=== PATIENT | female | born 1970 | race Caucasian/White ===

== ENCOUNTER → 2017-05-19 | Outpatient (CLI) | payer BC | END | disposition home or self-care (01) | LOC: LABWHC1 12:38 | PROVIDERS: ATTEND Obstetrics & Gynecology | DX: N83.209 Unspecified ovarian cyst, unspecified side (principal) | CPT/HCPCS: 36415; 86304 ==

== ENCOUNTER → 2017-05-28 | Outpatient (CLI) | payer BC ==
[2017-05-28 10:01] LABS: Basophils % (A) 0 %; CH 30.7; CHCM 34.2; Eosinophils # (A) 0.2 k/uL (0-0.7); Eosinophils % (A) 2 %; HDW 2.45; HGB 14.9 gm/dL (11.4-16.0); Luc # (Auto) 0.17; Luc % (Auto) 2; Lymphocytes # (A) 2.9 k/uL (1.0-4.8); Lymphocytes % (A) 39 %; MCH 29.8 pg (25.0-35.0); MCHC 33.1 g/dL (31.0-37.0); MCV 90.1 fL (80.0-100.0); Mean Platelet Volume 7.4; Monocytes # (A) 0.3 k/uL (0-1.0); Monocytes % (A) 4 %; Neutrophils # (A) 3.9 k/uL (1.3-7.7); Neutrophils % (A) 53 %; RBC 4.99 m/uL (3.80-5.40); RDW 12.4 % (11.5-15.5); WBC 7.4 k/uL (3.8-10.6); WBC (Perox) 7.41
== END | disposition home or self-care (01) ==
LOC: LABPAT 09:39
PROVIDERS: ATTEND Obstetrics & Gynecology
DX: Z01.812 Encounter for preprocedural laboratory examination (principal)
CPT/HCPCS: 36415; 85025

== ENCOUNTER → 2017-07-01 | Outpatient (CLI) | payer BC ==
--- NOTE | 2017-07-05 08:40 | MM ---
Reason for exam: screening (asymptomatic). Last mammogram was performed 1 year and 1 month ago. History: Patient is postmenopausal. Took hormonal contraceptives for 5 years. Physical Findings: A clinical breast exam by your physician is recommended on an annual basis and results should be correlated with mammographic findings. MG 3D Screening Mammo W/Cad Bilateral CC and MLO view(s) were taken. Prior study comparison: May 24, 2016, bilateral MG screening mammo w CAD. May 23, 2015, bilateral MG screening mammo w CAD. The breast tissue is heterogeneously dense. This may lower the sensitivity of mammography. Finding: There are typically benign circumscribed oval masses in both breasts present on multiple prior exams. No suspicious abnormality. No significant changes in finding since May 24, 2016 and May 23, 2015. ASSESSMENT: Benign, BI-RAD 2 RECOMMENDATION: Routine screening mammogram of both breasts in 1 year.
== END | disposition home or self-care (01) ==
LOC: RADMAMWWP 14:50
PROVIDERS: ATTEND Obstetrics & Gynecology
DX: Z12.31 Encounter for screening mammogram for malignant neoplasm of breast (principal)
CPT/HCPCS: 77063; G0202

== ENCOUNTER → 2018-01-11 | Outpatient (CLI) | payer BC ==
[2018-01-11 09:00] LABS: Basophils % (A) 1 %; Eosinophils # (A) 0.2 k/uL (0-0.7); Eosinophils % (A) 3 %; HCT 41.5 % (34.0-46.0); Lymphocytes # (A) 2.4 k/uL (1.0-4.8); Lymphocytes % (A) 37 %; MCH 30.4 pg (25.0-35.0); MCHC 33.7 g/dL (31.0-37.0); MCV 90.2 fL (80.0-100.0); Monocytes # (A) 0.5 k/uL (0-1.0); Monocytes % (A) 7 %; Neutrophils # (A) 3.3 k/uL (1.3-7.7); Neutrophils % (A) 50 %; Platelet Count 314 k/uL (150-450); RDW 12.5 % (11.5-15.5); WBC 6.6 k/uL (3.8-10.6)
[2018-01-11 14:45] LABS: ALT 54 U/L (9-52); AST 35 U/L (14-36); Albumin 4.6 g/dL (3.5-5.0); Alkaline Phosphatase 91 U/L (38-126); Anion Gap 15 mmol/L; Blood Urea Nitrogen 22 mg/dL (7-17); Calcium 9.7 mg/dL (8.4-10.2); Carbon Dioxide 27 mmol/L (22-30); Chloride 101 mmol/L (98-107); Cholesterol 152 mg/dL (<200); Glucose 109 mg/dL (74-99); HDL Cholesterol 49 mg/dL (40-60); LDL Cholesterol,Calculated 75 mg/dL (0-99); Potassium 4.2 mmol/L (3.5-5.1); Sodium 143 mmol/L (137-145); Total Bilirubin 0.3 mg/dL (0.2-1.3); Total Protein 7.4 g/dL (6.3-8.2); Triglycerides 141 mg/dL (<150)
[2018-01-11 15:20] LABS: T4, Free (Free Thyroxine) 1.11 ng/dL (0.78-2.19)
== END | disposition home or self-care (01) ==
LOC: LABWHC1 08:26
PROVIDERS: ATTEND Physician Assistant
DX: Z00.00 Encounter for general adult medical examination without abnormal findings (principal)
CPT/HCPCS: 36415; 80053; 80061; 84439; 84443; 85025

== ENCOUNTER → 2018-07-06 | Outpatient (CLI) | payer BC ==
--- NOTE | 2018-07-13 14:54 | MM ---
Reason for exam: screening (asymptomatic). Last mammogram was performed 1 year ago. History: Patient is postmenopausal. Family history of breast cancer in maternal aunt. Took hormonal contraceptives for 5 years. MG 3D Screening Mammo W/Cad Bilateral CC and MLO view(s) were taken. Prior study comparison: July 01, 2017, bilateral MG 3d screening mammo w/cad. May 24, 2016, bilateral MG screening mammo w CAD. The breast tissue is heterogeneously dense. This may lower the sensitivity of mammography. There is a benign-appearing 9 high oval circumscribed density in the left breast at 9 o'clock. It is approximately 5 cm from the nipple and this has enlarged from prior studies. Finding is changed when compared to prior images. ASSESSMENT: Incomplete: need additional imaging evaluation, BI-RAD 0 RECOMMENDATION: Ultrasound of the left breast.
== END ==
LOC: RADMAMWWP 09:26
PROVIDERS: ATTEND Obstetrics & Gynecology
DX: Z12.31 Encounter for screening mammogram for malignant neoplasm of breast (principal)
CPT/HCPCS: 77063; 77067

== ENCOUNTER → 2018-07-19 | Outpatient (CLI) | payer BC ==
--- NOTE | 2018-07-20 08:49 | USB ---
Reason for exam: additional evaluation requested from abnormal screening. History: Patient is postmenopausal. Family history of breast cancer in maternal aunt. Took hormonal contraceptives for 5 years. Physical Findings: Nurse did not find any significant physical abnormalities on exam. US Breast Workup Limited LT limited breast ultrasound including focal area of concern, retroareolar and axilla demonstrates a 1.1 x 0.7 x 1.4 cm oval cystic mixed lesion at 6 o'clock that a biopsy is recommended on. A 0.6 x 0.4 x 0.7 cm oval cystic lesion at 9 o'clock. These results were verbally communicated with the patient and result sheet given to the patient on 07/19/18. ASSESSMENT: Suspicious, BI-RAD 4 RECOMMENDATION: Ultrasound core biopsy of the left breast. Called Dr. Maldonado with mammographic findings and has scheduled an appointment for the patient for 08/24/18 at 10:[address] Gil. The ultrasount guided core biopsy of the left breast will be done on 08/07/18 at 12:20 pm. PRELIMINARY REPORT CALLED AND FAXED TO DR. GIL ON 07/19/18.
== END | disposition home or self-care (01) ==
LOC: RADUSWWP 15:24
PROVIDERS: ATTEND Obstetrics & Gynecology
DX: R92.8 Other abnormal and inconclusive findings on diagnostic imaging of breast (principal)

== ENCOUNTER → 2018-08-07 | Day surgery (SDC) | payer BC ==
[2018-08-07 11:29] VITALS: RESP 16; BMI 72.2
[2018-08-07 13:10] VITALS: BP 150/80; PULSE 98; TEMP 98.7
--- NOTE | 2018-08-07 13:10 | USB ---
EXAMINATION TYPE: US breast aspiration single LT, MG diagnostic mammo LT wo CAD DATE OF EXAM: 08/07/2018 CLINICAL HISTORY: R92.8. Abnormal mammogram and ultrasound. History of fibrocystic disease with prior biopsies per patient. TECHNIQUE: Ultrasound guided fine-needle aspiration and/or core biopsy of left breast. COMPARISON: Prior ultrasound July 19, 2018. Prior mammogram July 06, 2018 and older studies. FINDINGS: The procedure of ultrasound guided core biopsy was explained to the patient. Benefits, alternatives, and risks were discussed. An informed consent was then obtained. The patient was placed in supine positioning for imaging and for the procedure. Preprocedure ultrasound redemonstrates oval well-circumscribed 1.3 cm cyst zone a 6:00 position left breast with some internal septations along right aspect. The overlying skin was prepped and draped in usual sterile fashion. Lidocaine buffered with bicarbonate was used as anesthetic into the skin and subcutaneous tissue up to area of concern in the left breast. Under ultrasound guidance, a 18-gauge needle was used to obtain aspirate to resolution. Approximately 1 cc of cloudy fluid was aspirated. Following this, a biopsy clip was left at site lesion was present prior to aspiration. No residual suspicious tissue identified to warrant biopsy after aspiration. The patient tolerated the procedure well without any immediate complication. The patient was kept in the radiology department for short stay after the procedure and then discharged home in stable condition. Postprocedure mammogram shows successful deployment of clip corresponding to lesion of concern prior to procedure. IMPRESSION: Successful, uncomplicated ultrasound guided core biopsy of area of concern in the left breast, full pathology results to follow. Low index of suspicion noted at time of procedure. Pathology Results: Benign LEFT BREAST CYST, ASPIRATION: Apocrine cells, pigmented histiocytes and benign breast ductal cells consistent with benign breast cyst with apocrine metaplasia. Cells cytologically diagnostic of malignancy are not identified. Recommendation Follow up ultrasound of the left breast in 6 months. CELESTE
== END | disposition home or self-care (01) ==
LOC: RADUSWWP 11:16
PROVIDERS: ATTEND Surgery
DX: N60.02 Solitary cyst of left breast (principal); Z88.2 Allergy status to sulfonamides; Z88.8 Allergy status to other drugs, medicaments and biological substances
CPT/HCPCS: 88108; 77065; 76942; 19000; A4648; J2001

== ENCOUNTER → 2018-12-29 | Outpatient (CLI) | payer BC ==
[2018-12-29 08:48] LABS: Basophils % (A) 0 %; Eosinophils # (A) 0.3 k/uL (0-0.7); Eosinophils % (A) 4 %; HCT 45.7 % (34.0-46.0); HGB 14.8 gm/dL (11.4-16.0); Lymphocytes % (A) 38 %; MCH 29.6 pg (25.0-35.0); MCHC 32.3 g/dL (31.0-37.0); MCV 91.6 fL (80.0-100.0); Mean Platelet Volume 7.5; Monocytes # (A) 0.4 k/uL (0-1.0); Monocytes % (A) 5 %; Neutrophils # (A) 4.1 k/uL (1.3-7.7); Neutrophils % (A) 51 %; Platelet Count 248 k/uL (150-450); RBC 4.99 m/uL (3.80-5.40); RDW 12.8 % (11.5-15.5)
[2018-12-29 15:49] LABS: African American GFR (CKD) 119.6 (60.0-200.0); Albumin 4.9 g/dL (3.80-4.90); Albumin/Globulin Ratio 2.45 (1.60-3.17); Anion Gap 9.3 mmol/L (4.00-12.00); BUN/Creat Ratio 31.43 Ratio (12.00-20.00); Calcium 10.2 mg/dL (8.7-10.3); Carbon Dioxide 27.7 mmol/L (21.6-31.8); LDL Cholesterol,Calculated 79.4 mg/dL (0.0-131.0); Potassium 4.2 mmol/L (3.5-5.5); Total Bilirubin 0.4 mg/dL (0.2-1.2); Total Protein 6.9 g/dL (6.2-8.2); VLDL Calculation 35.6 mg/dL (5.00-40.00)
[2018-12-29 15:56] LABS: T4, Free (Free Thyroxine) 1.1 ng/dL (0.80-1.80)
== END | disposition home or self-care (01) ==
LOC: LABWHC1 08:19
PROVIDERS: ATTEND Physician Assistant
DX: E78.5 Hyperlipidemia, unspecified (principal)
CPT/HCPCS: 36415; 80053; 80061; 84439; 84443; 85025

== ENCOUNTER → 2019-01-10 | Outpatient (CLI) | payer BC ==
--- NOTE | 2019-01-10 09:18 | MM ---
Reason for exam: follow-up at short interval from prior study. Last mammogram was performed 5 months ago. History: Patient is postmenopausal. Family history of breast cancer in maternal aunt. Benign US breast aspiration single LT of the left breast, August 07, 2018. Took hormonal contraceptives for 5 years. Physical Findings: Nurse did not find any significant physical abnormalities on exam. MG 3D Diag Mammo W/Cad LT CC and MLO view(s) were taken of the left breast. Prior study comparison: August 07, 2018, left breast MG diagnostic mammo LT wo CAD. July 06, 2018, bilateral MG 3d screening mammo w/cad. The breast tissue is heterogeneously dense. This may lower the sensitivity of mammography. There are round oval circumscribed central outer and inner masses similar to priors. Ultrasound will be performed as ordered on the left. Left biopsy marker. These results were verbally communicated with the patient and result sheet given to the patient on 01/10/19. ASSESSMENT: Benign, BI-RAD 2 RECOMMENDATION: Return to routine screening mammogram schedule for both breasts. Back on schedule for July 2019.
--- NOTE | 2019-01-10 09:20 | USB ---
Reason for exam: follow-up at short interval from prior study. History: Patient is postmenopausal. Family history of breast cancer in maternal aunt. Benign US breast aspiration single LT of the left breast, August 07, 2018. Took hormonal contraceptives for 5 years. US Breast Limited LT Left limited breast ultrasound including focal area of concern, retroareolar and axilla demonstrates a 0.6 x 0.6 x 0.4cm cystic lesion at 9 o'clock, previously 0.6 x 0.4 x 0.7cm, benign. Previously aspirated 6 o'clock cyst is no longer seen and has resolved. These results were verbally communicated with the patient and result sheet given to the patient on 01/10/19. ASSESSMENT: Benign, BI-RAD 2 RECOMMENDATION: Return to routine screening mammogram schedule for both breasts. Back on schedule for July 2019.
== END | disposition home or self-care (01) ==
LOC: RADMAMWWP 07:55
PROVIDERS: ATTEND Surgery
DX: R92.8 Other abnormal and inconclusive findings on diagnostic imaging of breast (principal)
CPT/HCPCS: 77061; 77065

== ENCOUNTER → 2019-02-05 | Outpatient (CLI) | payer BC ==
--- NOTE | 2019-02-05 17:00 | ECHOF ---
Referral Reason:R01.1 cardiac murmur MEASUREMENTS -------- HEIGHT: 162.6 cm WEIGHT: 88.0 kg BP: IVSd: 0.9 cm (0.6 - 1.1) LVIDd: 5.1 cm (3.9 - 5.3) LVPWd: 1.0 cm (0.6 - 1.1) IVSs: 1.2 cm LVIDs: 3.5 cm LVPWs: 1.2 cm LA Diam: 3.2 cm (2.7 - 3.8) RVIDd: 2.6 cm (< 3.3) Ao Diam: 3.2 cm (2.0 - 3.7) LA Diam: 2.8 cm (2.7 - 3.8) AV Cusp: 1.5 cm (1.5 - 2.6) EPSS: 0.5 cm MV E Armani: 0.75 m/s MV DecT: 190 ms MV A Armani: 0.87 m/s MV E/A Ratio: 0.87 RAP: 5.00 mmHg RVSP: 20.19 mmHg MV EF SLOPE: 54.36 mm/s (70 - 150) MV EXCURSION: 1.14 cm (> 18.000) FINDINGS -------- Sinus rhythm. This was a technically adequate study. LV size, wall thickness and systolic function are normal, with an EF greater than 55%. The left raymon tricular size is normal. The right ventricle is normal in size. The left atrial size is normal. The right atrial size is normal. The aortic valve is trileaflet, and appears structurally normal. No aortic stenosis or regurgitation. Mild mitral regurgitation is present. Mild tricuspid regurgitation present. There is no evidence of pulmonary hypertension. The right v entricular systolic pressure, as measured by Doppler, is 20.19mmHg. There is no pulmonic regurgitation present. The aortic root size is normal. There is no pericardial effusion. CONCLUSIONS -------- 1. This was a technically adequate study. 2. LV size, wall thickness and systolic function are normal, with an EF greater than 55%. 3. The left ventricular size is normal. 4. The right ventricle is normal in size. 5. The left atrial size is normal. 6. The right atrial size is normal. 7. The aortic valve is trileaflet, and appears structurally normal. No aortic stenosis or regurgitati on. 8. Mild mitral regurgitation is present. 9. There is no evidence of pulmonary hypertension. 10. The right ventricular systolic pressure, as measured by Doppler, is 20.19mmHg. 11. There is no pulmonic regurgitation present. 12. The aortic root size is normal. 13. There is no pericardial effusion. EVENT LIGHTING SPECIALIST: Constanza Moraes RDCS
== END | disposition home or self-care (01) ==
LOC: RADECHMAIN 11:13
PROVIDERS: ATTEND Family Medicine
DX: R01.1 Cardiac murmur, unspecified (principal)
CPT/HCPCS: 93306

== ENCOUNTER → 2019-07-26 | Outpatient (CLI) | payer BC ==
--- NOTE | 2019-07-27 10:25 | MM ---
Reason for exam: screening (asymptomatic). Last mammogram was performed 6 months ago. History: Patient is postmenopausal. Family history of breast cancer in maternal aunt. Benign US breast aspiration single LT of the left breast, August 07, 2018. Took hormonal contraceptives for 5 years. Physical Findings: A clinical breast exam by your physician is recommended on an annual basis and results should be correlated with mammographic findings. MG 3D Screening Mammo W/Cad Bilateral CC and MLO view(s) were taken. Prior study comparison: January 10, 2019, left breast MG 3d diag mammo w/cad LT. August 07, 2018, left breast MG diagnostic mammo LT wo CAD. The breast tissue is heterogeneously dense. This may lower the sensitivity of mammography. Previous mammotome biopsy in the left breast. There is no discrete abnormality. ASSESSMENT: Benign, BI-RAD 2 RECOMMENDATION: Routine screening mammogram of both breasts in 1 year.
== END | disposition home or self-care (01) ==
LOC: RADMAMWWP 06:54
PROVIDERS: ATTEND Obstetrics & Gynecology
DX: Z12.31 Encounter for screening mammogram for malignant neoplasm of breast (principal)
CPT/HCPCS: 77063; 77067

== ENCOUNTER → 2020-09-17 | Outpatient (CLI) | payer BC ==
--- NOTE | 2020-09-19 08:06 | BD ---
EXAMINATION TYPE: Axial Bone Density DATE OF EXAM: 09/17/2020 COMPARISON: NONE CLINICAL HISTORY: Height: 64.2 IN Weight: 194 LBS FRAX RISK QUESTIONS: Secondary Osteoporosis: 3. Menopause before 45: AGE 44 RISK FACTORS HISTORY OF: Family History of Osteoporosis: YES GRANDMOTHER Active: YES Postmenopausal woman: AGE 44 MEDICATIONS: Additional Medications: VIT D, CRESTOR, HCTZ, FISH OIL, PRIMROSE OIL, JUICE PLUS, EXAM MEASUREMENTS: Bone mineral densitometry was performed using the [employer] System. Bone mineral density as measured about the Lumbar spine is: ----- L1-L4(G/cm2): 1.227 T Score Values are as follows: ----- L2: 0.0 ----- L3: 0.5 ----- L4: 0.3 ----- L1-L4: 0.4 Bone mineral density BASELINE Bone mineral density about the R hip (g/cm2): 1.065 Bone mineral density about the L hip (g/cm2): 1.020 T Score values are as follows: -----R Neck: 0.2 -----L Neck: -0.1 -----R Total: 0.9 -----L Total: 1.1 Bone mineral density BASELINE IMPRESSION: Normal (Values between +1 and -1 indicate normal bone mass). Consider repeating this study in 5 year s or sooner if there is some new clinical indication. NOTE: T-SCORE=SD OF THE YOUNG ADULT MEAN.
--- NOTE | 2020-09-22 10:20 | MM ---
Reason for exam: screening (asymptomatic). Last mammogram was performed 1 year and 2 months ago. History: Patient is postmenopausal. Family history of breast cancer in maternal aunt. Benign US breast aspiration single LT of the left breast, August 07, 2018. Took hormonal contraceptives for 5 years. Physical Findings: A clinical breast exam by your physician is recommended on an annual basis and results should be correlated with mammographic findings. MG 3D Screening Mammo W/Cad Bilateral CC and MLO view(s) were taken. XCCL view(s) were taken of the left breast. Prior study comparison: July 26, 2019, bilateral MG 3d screening mammo w/cad. January 10, 2019, left breast MG 3d diag mammo w/cad LT. The breast tissue is heterogeneously dense. This may lower the sensitivity of mammography. Previous mammotome biopsy in the left breast. A 7mm circumscribed isodense nodule 11 o'clock right breast is more defined and suspected to represent a waxing cyst. 6 month follow up recommended. ASSESSMENT: Probably benign, BI-RAD 3 RECOMMENDATION: Follow-up diagnostic mammogram of the right breast in 6 months.
== END ==
LOC: RADMAMWWP 15:41
PROVIDERS: ATTEND Obstetrics & Gynecology
DX: M81.8 Other osteoporosis without current pathological fracture (principal)
CPT/HCPCS: 77063; 77067; 77080

== ENCOUNTER → 2021-03-25 | Outpatient (CLI) | payer BC ==
--- NOTE | 2021-03-25 09:07 | MM ---
Reason for exam: follow-up at short interval from prior study. Last mammogram was performed 6 months ago. History: Patient is postmenopausal. Family history of breast cancer in maternal aunt. Benign US breast aspiration single LT of the left breast, August 07, 2018. Took hormonal contraceptives for 5 years. Physical Findings: Nurse did not find any significant physical abnormalities on exam. MG 3D Diag Mammo W/Cad RT CC and MLO view(s) were taken of the right breast. Prior study comparison: September 17, 2020, bilateral MG 3d screening mammo w/cad. July 26, 2019, bilateral MG 3d screening mammo w/cad. January 10, 2019, left breast MG 3d diag mammo w/cad LT. The breast tissue is heterogeneously dense. This may lower the sensitivity of mammography. Circumscribed nodule medially increased in size and laterally decreased in size. Cysts are suspected. Continued follow up recommended. These results were verbally communicated with the patient and result sheet given to the patient on 03/25/21. ASSESSMENT: Probably benign, BI-RAD 3 RECOMMENDATION: Follow-up diagnostic mammogram of both breasts in 6 months.
== END | disposition home or self-care (01) ==
LOC: RADMAMWWP 07:29
PROVIDERS: ATTEND Obstetrics & Gynecology
DX: N63.10 Unspecified lump in the right breast, unspecified quadrant (principal); Z78.0 Asymptomatic menopausal state; Z80.3 Family history of malignant neoplasm of breast; Z79.3 Long term (current) use of hormonal contraceptives
CPT/HCPCS: 77061; 77065

== ENCOUNTER → 2021-06-23 | Outpatient (CLI) | payer BC ==
[~2021-06-23] MED LIST: BAMLANIVIMAB (EUA) 700 MG, ETESEVIMAB (EUA) 1,400 MG in SODIUM CHLORIDE 0.9% 50 ML IVPB ONE; SODIUM CHLORIDE 0.9% 50 ML IVPB ONE; SODIUM CHLORIDE 0.9% 500 ML 500 ML in EMPTY BAG 1 BAG IV PRN
[2021-06-23 10:32] VITALS: RESP 16
[2021-06-23 10:51] VITALS: BP 111/76; PULSE 77; TEMP 98
== END ==
LOC: PROCWHC3 09:59
PROVIDERS: ATTEND Nurse Practitioner Family
DX: U07.1 COVID-19 (principal); E66.9 Obesity, unspecified; Z88.2 Allergy status to sulfonamides; Z88.8 Allergy status to other drugs, medicaments and biological substances; Z68.31 Body mass index [BMI] 31.0-31.9, adult
CPT/HCPCS: 96360; J3490; M0245

== ENCOUNTER → 2021-09-23 | Outpatient (CLI) | payer BC ==
--- NOTE | 2021-09-23 09:56 | MM ---
Reason for exam: follow-up at short interval from prior study. Last mammogram was performed 6 months ago. History: Patient is postmenopausal. Family history of breast cancer in maternal aunt. Benign US breast aspiration single LT of the left breast, August 07, 2018. Took hormonal contraceptives for 5 years. Physical Findings: A clinical breast exam by your physician is recommended on an annual basis and results should be correlated with mammographic findings. MG 3D Diag Mammo W/Cad REY Bilateral CC and MLO view(s) were taken. Prior study comparison: March 25, 2021, right breast MG 3d diag mammo w/cad RT. September 17, 2020, bilateral MG 3d screening mammo w/cad. The breast tissue is heterogeneously dense. This may lower the sensitivity of mammography. There is chronic nodularity in the right breast. ASSESSMENT: Probably benign, BI-RAD 3 RECOMMENDATION: Follow-up diagnostic mammogram of the right breast in 6 months.
== END | disposition home or self-care (01) ==
LOC: RADMAMWWP 07:45
PROVIDERS: ATTEND Obstetrics & Gynecology
DX: R92.8 Other abnormal and inconclusive findings on diagnostic imaging of breast (principal); Z78.0 Asymptomatic menopausal state; Z80.3 Family history of malignant neoplasm of breast
CPT/HCPCS: 77062; 77066

== ENCOUNTER → 2021-10-22 | Outpatient (CLI) | payer BC ==
[2021-10-22 10:34] LABS: Basophils # (A) 0.03 X 10*3/uL (0.00-0.10); Basophils % (A) 0.4 %; Eosinophils # (A) 0.19 X 10*3/uL (0.04-0.35); Eosinophils % (A) 2.7 %; HCT 47.3 % (37.2-46.3); HGB 15.1 g/dL (12.0-15.0); Immature Grans, Automated 0.1 %; Lymphocytes # (A) 2.48 X 10*3/uL (0.90-5.00); Lymphocytes % (A) 35.2 %; MCH 29.7 pg (27.0-32.0); MCHC 31.9 g/dL (32.0-37.0); MCV 92.9 fL (80.0-97.0); Mean Platelet Volume 10.9 fL (9.5-12.2); Monocytes % (A) 7.1 %; NRBC Per 100 WBC 0 /100 WBCS (0.0-0.0); Neutrophils # (A) 3.83 X 10*3/uL (1.80-7.70); Neutrophils % (A) 54.5 %; Platelet Count 262 X 10*3/uL (140-440); RBC 5.09 X 10*6/uL (4.10-5.20); RDW 11.9 % (11.5-14.5); WBC 7.04 X 10*3/uL (4.50-10.00)
[2021-10-22 10:49] LABS: ALT 23 U/L (8-44); AST 22 U/L (13-35); African American GFR (CKD) 123.2 (60.0-200.0); Albumin/Globulin Ratio 1.85 (1.60-3.17); Alkaline Phosphatase 78 U/L (41-126); Blood Urea Nitrogen 20.7 mg/dL (9.0-27.0); Calcium 9.8 mg/dL (8.7-10.3); Carbon Dioxide 26.1 mmol/L (20.0-27.5); Chloride 102 mmol/L (96-109); Chol/HDL Ratio 2.84 Ratio; Globulin 2.7 g/dL (1.6-3.3); Glucose 102 mg/dL (70-110); LDL Cholesterol,Calculated 73.9 mg/dL (0.0-131.0); Non-African American GFR(CKD) 106.3 (60.0-200.0); Potassium 4.1 mmol/L (3.5-5.5); Sodium 142 mmol/L (135-145); Total Protein 7.7 g/dL (6.2-8.2)
== END | disposition home or self-care (01) ==
LOC: LABWHC1 07:05
PROVIDERS: ATTEND Nurse Practitioner Family
DX: Z00.00 Encounter for general adult medical examination without abnormal findings (principal)
CPT/HCPCS: 36415; 80053; 80061; 84439; 84443; 85025

== ENCOUNTER → 2022-04-07 | Outpatient (CLI) | payer BC ==
--- NOTE | 2022-04-07 07:25 | MM ---
Reason for Exam: Follow-up at short interval from prior study. Last screening mammogram was performed 7 month(s) ago. Patient History: Menarche at age 13. First Full-Term at age 27. Postmenopausal. Patient used Hormonal Contraceptives for 5 years. 08/07/2018, Benign Cyst Aspiration on the left side. Maternal aunt had breast cancer, age 61. Risk Values: Dania 5 year model risk: 1.1%. NCI Lifetime model risk: 9.9%. Prior Study Comparison: 09/17/2020 Bilateral Screening Mammogram, [facility]. 03/25/2021 Right Diagnostic Mammogram, [facility]. 09/23/2021 Bilateral Diagnostic Mammogram, [facility]. Tissue Density: Right: The breast tissue is heterogeneously dense. This may lower the sensitivity of mammography. Findings: Analyzed By CAD. There is a mass in the right breast inner upper quadrant at middle/posterior depth measuring proximally 8 mm. Overall Assessment: Incomplete: need additional imaging evaluation, BI-RAD 0 Management: Diagnostic Breast Ultrasound of the right breast. A clinical breast exam by your physician is recommended on an annual basis and results should be correlated with mammographic findings. This exam should not preclude additional follow-up of suspicious palpable abnormalities. Results were given to the patient verbally at the time of exam. Electronically signed and approved by: Manpreet Avendano DO
--- NOTE | 2022-04-07 07:47 | USB ---
Reason for Exam: Follow-up at short interval from prior study. Patient History: Menarche at age 13. First Full-Term at age 27. Postmenopausal. Patient used Hormonal Contraceptives for 5 years. 08/07/2018, Benign Cyst Aspiration on the left side. Maternal aunt had breast cancer, age 61. Risk Values: Dania 5 year model risk: 1.1%. NCI Lifetime model risk: 9.9%. Technique: Method: Targeted. Prior Study Comparison: 09/17/2020 Bilateral Screening Mammogram, [facility]. 03/25/2021 Right Diagnostic Mammogram, [facility]. 09/23/2021 Bilateral Diagnostic Mammogram, [facility]. Findings: The upper inner quadrant of the right breast was scanned. A complete US of all four quadrants of the breast and retro-areolar region were reviewed. No solid or cystic masses are identified. Right breast at 1:00 5 cm from nipple is a 14 x 6 x 9 mm anechoic cyst with posterior acoustic enhancement. Right breast 2:00 6 cm from nipple is a 8 x 5 x 8 mm anechoic cyst with posterior acoustic enhancement. Overall Assessment: Benign, BI-RAD 2 Management: Screening Mammogram of both breasts in 1 year. A clinical breast exam by your physician is recommended on an annual basis and results should be correlated with mammographic findings. Electronically signed and approved by: Manpreet Avendano DO
== END | disposition home or self-care (01) ==
LOC: RADMAMWWP 06:50
PROVIDERS: ATTEND Obstetrics & Gynecology
DX: R92.8 Other abnormal and inconclusive findings on diagnostic imaging of breast (principal); N60.02 Solitary cyst of left breast; Z78.0 Asymptomatic menopausal state; Z80.3 Family history of malignant neoplasm of breast
CPT/HCPCS: 77061; 77065

== ENCOUNTER → 2022-11-08 | Outpatient (CLI) | payer BC ==
--- NOTE | 2022-11-09 15:53 | MM ---
Reason for Exam: Screening (asymptomatic). Last mammogram was performed 1 year(s) and 2 month(s) ago. Patient History: Menarche at age 13. First Full-Term at age 27. Postmenopausal. Patient used Hormonal Contraceptives for 5 years. 08/07/2018, Benign Cyst Aspiration on the left side. Maternal aunt had breast cancer, age 61. Risk Values: Dania 5 year model risk: 1.1%. NCI Lifetime model risk: 9.7%. Prior Study Comparison: 03/25/2021 Right Diagnostic Mammogram, [facility]. 09/23/2021 Bilateral Diagnostic Mammogram, [facility]. 04/07/2022 Right MG 3D diag mammo w/cad RT, [facility]. Tissue Density: The breast tissue is heterogeneously dense. This may lower the sensitivity of mammography. Findings: Analyzed By CAD. The pattern appears symmetrical and stable. There appears to be new oval density in the upper right mediolateral oblique view. This may be a medial at the 1:00 position on the craniocaudal projection. This appears to be a change from comparison. Additional workup is recommended. Left breast appears stable. Benign calcifications are present. Core markers within the left breast. Overall Assessment: Incomplete: need additional imaging evaluation, BI-RAD 0 Management: Diagnostic Breast Ultrasound of the right breast. A negative mammogram report should not preclude additional follow up of suspicious palpable abnormalities. Patient should continue monthly self breast exam. A clinical breast exam by your physician is recommended on an annual basis and results should be correlated with mammographic findings. Electronically signed and approved by: Mejia Woodward D.O. Radiologis
== END | disposition home or self-care (01) ==
LOC: RADMAMWWP 15:54
PROVIDERS: ATTEND Obstetrics & Gynecology
DX: Z12.31 Encounter for screening mammogram for malignant neoplasm of breast (principal); Z78.0 Asymptomatic menopausal state; Z80.3 Family history of malignant neoplasm of breast
CPT/HCPCS: 77063; 77067

== ENCOUNTER → 2022-11-22 | Outpatient (CLI) | payer BC ==
--- NOTE | 2022-11-22 15:39 | USB ---
Reason for Exam: Additional evaluation requested from abnormal screening. Patient History: Menarche at age 13. First Full-Term at age 27. Postmenopausal. Patient used Hormonal Contraceptives for 5 years. 08/07/2018, Benign Cyst Aspiration on the left side. Maternal aunt had breast cancer, age 61. Risk Values: Dania 5 year model risk: 1.1%. NCI Lifetime model risk: 9.7%. Technique: Method: Targeted. Prior Study Comparison: 09/23/2021 Bilateral Diagnostic Mammogram, [facility]. 04/07/2022 Right MG 3D diag mammo w/cad RT, [facility]. 11/08/2022 Bilateral MG 3D screening mammo w/cad, [facility]. Findings: The upper inner quadrant of the right breast, the axilla of the right breast and the retroareolar of the right breast were scanned. Targeted ultrasound right breast 11:00 to 3:00 including the subareolar region and axilla. * At the 11:00 position, 5 cm from the nipple, there is a benign 6 x 5 x 4 mm cyst. * At the 1:00 position, 5 cm from the nipple, there is a benign, oval, 1.5 x 1.2 x 0.5 cm cyst. Likely mammographic correlate. * At the 2:00 position, 6 cm from the nipple, there is a round 9 x 8 x 8 mm cyst. * No other solid or cystic lesion or axillary lymphadenopathy. Overall Assessment: Probably benign, BI-RAD 3 Management: Diagnostic Mammogram of the right breast in 6 months. A clinical breast exam by your physician is recommended on an annual basis and results should be correlated with mammographic findings. This exam should not preclude additional follow-up of suspicious palpable abnormalities. Results were given to the patient verbally at the time of exam. Electronically signed and approved by: Abiodun Paul M.D. Radiologist
== END | disposition home or self-care (01) ==
LOC: RADUSWWP 14:47
PROVIDERS: ATTEND Obstetrics & Gynecology
DX: R92.8 Other abnormal and inconclusive findings on diagnostic imaging of breast (principal); Z78.0 Asymptomatic menopausal state; Z80.3 Family history of malignant neoplasm of breast

== ENCOUNTER → 2022-12-20 | Outpatient (CLI) | payer BC ==
[2022-12-20 11:28] LABS: ALT 33 U/L (8-44); AST 22 U/L (13-35); Albumin/Globulin Ratio 2.17 Ratio (1.60-3.17); Alkaline Phosphatase 78 U/L (41-126); BUN/Creat Ratio 31.17 Ratio (12.00-20.00); Blood Urea Nitrogen 18.7 mg/dL (9.0-27.0); Calcium 9.7 mg/dL (8.7-10.3); Carbon Dioxide 27.1 mmol/L (21.6-31.8); Chloride 102 mmol/L (96-109); Chol/HDL Ratio 2.58 Ratio; Globulin 2.3 d/dL (1.6-3.3); Glucose 98 mg/dL (70-110); LDL Cholesterol,Calculated 78.3 mg/dL (0.0-131.0); Potassium 4.6 mmol/L (3.5-5.5); Sodium 142 mmol/L (135-145); Total Bilirubin 0.3 mg/dL (0.3-1.2); Total Protein 7.3 d/dL (6.2-8.2)
[2022-12-20 11:31] LABS: Basophils # (A) 0.03 X 10*3/uL (0.00-0.10); Basophils % (A) 0.4 %; Eosinophils # (A) 0.28 X 10*3/uL (0.04-0.35); HCT 46.4 % (37.2-46.3); HGB 14.9 d/dL (12.0-15.0); Lymphocytes % (A) 36.1 %; MCH 30.3 pg (27.0-32.0); MCHC 32.1 d/dL (32.0-37.0); MCV 94.5 FL (80.0-97.0); Mean Platelet Volume 11.6 FL (9.5-12.2); Monocytes # (A) 0.46 X 10*3/uL (0.20-1.00); Monocytes % (A) 6.6 %; NRBC Per 100 WBC 0 X 10*3/uL (0.00-0.01); Neutrophils # (A) 3.63 X 10*3/uL (1.80-7.70); Neutrophils % (A) 52.5 %; Platelet Count 220 X 10*3/uL (140-440); RBC 4.91 X 10*6/uL (4.10-5.20); WBC 6.93 X 10*3/uL (4.50-10.00)
[2022-12-20 13:46] LABS: HIV 2 AB Non-Reactive (Non-Reactive); HIV AB P24 Non-Reactive (Non-Reactive); HIV P24 AG Non-Reactive (Non-Reactive)
== END | disposition home or self-care (01) ==
LOC: LABWHC1 07:24
PROVIDERS: ATTEND Family Medicine
DX: Z11.4 Encounter for screening for human immunodeficiency virus [HIV] (principal); E78.5 Hyperlipidemia, unspecified
CPT/HCPCS: 36415; 80053; 80061; 83036; 84443; 85025; 87390

== ENCOUNTER → 2023-05-12 | Outpatient (CLI) | payer BC ==
--- NOTE | 2023-05-12 15:26 | MM ---
Reason for Exam: Follow-up at short interval from prior study. Last screening mammogram was performed 6 month(s) ago. Patient History: Menarche at age 13. First Full-Term at age 27. Postmenopausal. Patient used Hormonal Contraceptives for 5 years. 08/07/2018, Benign Cyst Aspiration on the left side. Maternal aunt had breast cancer, age 61. Risk Values: Dania 5 year model risk: 1.1%. NCI Lifetime model risk: 9.7%. Prior Study Comparison: 09/23/2021 Bilateral Diagnostic Mammogram, [facility]. 04/07/2022 Right MG 3D diag mammo w/cad RT, [facility]. 11/08/2022 Bilateral MG 3D screening mammo w/cad, [facility]. Tissue Density: Right: The breast tissue is heterogeneously dense. This may lower the sensitivity of mammography. Findings: Analyzed By CAD. Stable appearing fibroglandular tissue. No new suspicious masses or conditions or distortions. Left biopsy clip. Overall Assessment: Benign, BI-RAD 2 Management: Screening Mammogram of both breasts in 6 months. Results were given to the patient verbally at the time of exam. Patient should continue monthly self-breast exams. A clinical breast exam by your physician is recommended on an annual basis. This exam should not preclude additional follow-up of suspicious palpable abnormalities. Note on Dania scores and lifetime risk: 1. A Dania score greater than 3% is considered moderate risk. If this is the case, consider specialist referral to assess eligibility for a risk reducing agent. 2. If overall lifetime risk for the development of breast cancer is 20% or higher, the patient may qualify for future screening with alternating mammogram and breast MRI. Electronically signed and approved by: Manpreet Avendano DO
== END | disposition home or self-care (01) ==
LOC: RADMAMWWP 14:46
PROVIDERS: ATTEND Obstetrics & Gynecology
DX: R92.331 Mammographic heterogeneous density, right breast (principal); Z78.0 Asymptomatic menopausal state
CPT/HCPCS: 77061; 77065

== ENCOUNTER → 2023-11-16 | Outpatient (CLI) | payer BC ==
[2023-11-16 10:53] VITALS: BP 180/90; PULSE 106; RESP 17; TEMP 97.9
--- NOTE | 2023-11-16 11:20 | P.HPOB ---
History of Present Illness H&P Date: 11/16/23 Chief Complaint: The patient is here for her routine gynecologic exam and ma mmogram. This is a 53-year-old G1, P1 with an LMP of approximately 2018. She is here to establish with this office. It has been about 1 year since her last pelvic exam. She previously saw Dr. Maldonado for her gynecologic care. She has a long history of oligomenorrhea, infertility, and endometriosis. Her menstrual periods were infrequent throughout most of her life. The patient had a hysteroscopy and D&C in 2017 for postmenopausal bleeding and a thickened endometrium of 1.5 cm. This was done by Dr. Maldonado a did reveal some findings of a submucosal fibroid and was otherwise unremarkable. She states that she has had at least 2 D&Cs in the past. More recently she had a pelvic ultrasound done on 09/05/2023 which showed an endometrial stripe of 1.3 cm and a 1.8 cm right ovarian cyst. She denies any vaginal bleeding or pelvic discomfort. She denies pains like she had with her endometriosis. Her last Pap smear was on 10/20/2022 and the Pap smear cotest was negative. These were obtained from records from Dr. Maldonado's office. Review of Systems The patient's weight has been stable over the last year. She denies respiratory, cardiac, or G.I. problems. Past Medical History Past Medical History: Hyperlipidemia, Hypertension Additional Past Medical History / Comment(s): heart murmer as child. 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 History of Any Multi-Drug Resistant Organisms: None Reported Additional Past Surgical History / Comment(s): eye surgery age 6 and 17; Exploratory laparotomy with right ovarian cystectomy, dilatation and currettagex2; [place] teeth. 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 - Past Family History Mother Family Medical History: Hypertension Additional Family Medical History / Comment(s): Endometriosis. IBS. Maternal aunt had breast cancer. Father Family Medical History: Cancer Additional Family Medical History / Comment(s): Melanoma Medications and Allergies Home Medications Medication Instructions Recorded Confirmed Type Rosuvastatin Calcium [Crestor] 10 mg PO HS 12/18/13 11/16/23 History hydroCHLOROthiazide [Hydrodiuril] 12.5 mg PO QAM 12/18/13 11/16/23 History [place]-3 Fatty Acids/Fish Oil [Fish 1 each PO DAILY 06/01/17 11/16/23 History Oil 1,000 mg Softgel] Calcium Carbonate/Vitamin D3 1 tab PO DAILY 11/16/23 11/16/23 History [Calcium 600-D3 20 mcg (800 Unit)] Allergies Allergy/AdvReac Type Severity Reaction Status Date / Time Sulfa (Sulfonamide Allergy Rash/Hives Verified 11/16/23 10:09 Antibiotics) leuprolide acetate AdvReac Vomiting Verified 11/16/23 10:09 [From Lupron] Exam Vital Signs Temp Pulse Resp BP Pulse Ox 11/16/23 10:17 97.9 F 106 H 17 180/90 100 Intake and Output 11/15/23 11/16/23 11/16/23 22:59 06:59 14:59 Other: Weight 91.626 kg Height 5 feet 5 inches, weight 202 pounds, BMI 33.6. This is a well-developed well-nourished white female who is alert and oriented times 3 in no acute distress. HEENT: Within normal limits. NECK: Supple without mass or thyromegaly. CHEST AND LUNGS: Clear to auscultation. HEART: Regular rate and rhythm. BREASTS: Are without mass or discharge. AXILLARY EXAM: Negative for adenopathy. BACK: Negative for CVA tenderness. ABDOMEN: Soft, nontender, without palpable masses. PELVIC EXAM: Normal external genitalia. Cervix and vagina appear normal. There is no unusual discharge. There is no evidence of prolapse. The uterus is midposition, approximately 12-week size and nontender. There are no palpable adnexal masses or tenderness. RECTAL EXAM: Rectovaginal exam is negative for mass or tenderness and is negative for occult blood. EXTREMITIES: Nontender. IMPRESSION: 1. 53-year-old female with several years of amenorrhea and a long history of oligomenorrhea. Endometrial thickness is 1.3 cm and this could be consistent with perimenopause or postmenopause. Hysteroscopy with D&C did not reveal anyth ing significant with an endometrial thickness of 1.5 cm in 2017. 2. Mildly enlarged uterus possibly consistent with uterine fibroids. 3. History of chronic hypertension with elevated blood pressure today. 4. Right ovarian cyst measuring approximately 1.8 cm by pelvic ultrasound PLAN: 1. Pap smear was deferred since she had a negative Pap smear cotest on 10/20/2022. She also had negative Pap smear cotest on 04/27/2017 and 06/20/2020. These were in Dr. Maldonado's records 2. Self breast awareness was discussed with the patient. We have also discussed symptoms associated with inflammatory breast cancer. 3. Screening mammogram will be done today. 4. Osteoporosis prevention was discussed. I have stressed the importance of adequate calcium, vitamin D and regular exercise. Recommended amounts of calcium and vitamin D were also discussed. 5. I have recommended that she check her own blood pressures on a regular basis and follow-up with Dr. Lemus for blood pressure elevations. 6. We will plan on repeating her pelvic ultrasound in March of this year. The order slip was given to the patient for this. Also stressed the importance of letting me know if she does have vaginal bleeding or unusual discomfort or pain. If increasing endometrial thickness, vaginal bleeding or problems, consider additional workup such as endometrial sampling. 7. Colorectal cancer screening has been done with Cologuard testing through her PCP. And she will continue to do this through her PCP. 8. She was advised to return in one year for her annual well woman exam and as needed.
--- NOTE | 2023-11-16 13:46 | MM ---
Reason for Exam: Screening (asymptomatic). Last screening mammogram was performed 12 month(s) ago. Patient History: Menarche at age 13. First Full-Term at age 27. Postmenopausal. Patient used Hormonal Contraceptives for 5 years. 08/07/2018, Benign Cyst Aspiration on the left side. Maternal aunt had breast cancer, age 61. Risk Values: Dania 5 year model risk: 1.2%. NCI Lifetime model risk: 9.6%. Prior Study Comparison: 04/07/2022 Right MG 3D diag mammo w/cad RT, [facility]. 11/08/2022 Bilateral MG 3D screening mammo w/cad, [facility]. 05/12/2023 Right MG 3D diag mammo w/cad RT, [facility]. Tissue Density: The breasts are heterogeneously dense, which may obscure small masses. Findings: Analyzed By CAD. Right breast: There is no suspicious group of microcalcifications or new suspicious mass. Left breast: There is no suspicious group of microcalcifications or new suspicious mass. Overall Assessment: Negative, BI-RAD 1 Management: Screening Mammogram of both breasts in [address] [facility] will attempt to contact patient to return for supplemental views and ultrasound if indicated. Patient should continue monthly self-breast exams. A clinical breast exam by your physician is recommended on an annual basis. This exam should not preclude additional follow-up of suspicious palpable abnormalities. Note on Dania scores and lifetime risk: 1. A Dania score greater than 3% is considered moderate risk. If this is the case, consider specialist referral to assess eligibility for a risk reducing agent. 2. If overall lifetime risk for the development of breast cancer is 20% or higher, the patient may qualify for future screening with alternating mammogram and breast MRI. Electronically signed and approved by: Manpreet Avendano DO
== END ==
LOC: WWCWWP 09:40
PROVIDERS: ATTEND Obstetrics & Gynecology
DX: Z01.419 Encounter for gynecological examination (general) (routine) without abnormal findings (principal); Z12.31 Encounter for screening mammogram for malignant neoplasm of breast; N91.2 Amenorrhea, unspecified; N91.5 Oligomenorrhea, unspecified; N85.2 Hypertrophy of uterus; I10 Essential (primary) hypertension; N83.201 Unspecified ovarian cyst, right side; Z80.3 Family history of malignant neoplasm of breast; Z78.0 Asymptomatic menopausal state; Z88.2 Allergy status to sulfonamides; Z88.8 Allergy status to other drugs, medicaments and biological substances; Z79.899 Other long term (current) drug therapy
CPT/HCPCS: 77063; 77067

== ENCOUNTER → 2024-02-01 | Outpatient (CLI) | payer BC ==
--- NOTE | 2024-02-01 19:21 | CA ---
Transthoracic Echo Report Name: Irina Ernandez Age: 53 Gender: F : 1970 Exam Date: 02/01/2024 11:29 Exam Location: [place] [facility] Ht (in): 65 Wt (lb): 196 Ordering Physician: Christopher Lemus MD Attending/Referring Phys: Meagan Johnson [facility] Foam Molder Lana Andrade RDCS Procedure CPT: Indications: I10 HYPERTENSION Cardiac Hx: Technical Quality: Good Contrast 1: Total Dose (mL): Contrast 2: Total Dose (mL): MEASUREMENTS (Male / Female) Normal Values 2D ECHO LV Diastolic Diameter PLAX 4.7 cm 4.2 - 5.9 / 3.9 - 5.3 cm LV Systolic Diameter PLAX 2.6 cm IVS Diastolic Thickness 1.2 cm 0.6 - 1.0 / 0.6 - 0.9 cm LVPW Diastolic Thickness 1.2 cm 0.6 - 1.0 / 0.6 - 0.9 cm LV Relative Wall Thickness 0.5 RV Internal Dim ED PLAX 3.0 cm LA Systolic Diameter LX 2.9 cm 3.0 - 4.0 / 2.7 - 3.8 cm LV Diastolic Volume MOD BP 74.1 cm??? 67 - 155 / 56 - 104 cm??? LV Systolic Volume MOD BP 23.5 cm??? 22 - 58 / 19 - 49 cm??? LV Ejection Fraction MOD BP 68.2 % >= 55 % LV Cardiac Index MOD BP 2315.9 cm???/min???m??? LV Diastolic Volume MOD 4C 76.9 cm??? LV Systolic Volume MOD 4C 20.6 cm??? LV Ejection Fraction MOD 4C 73.2 % LV Cardiac Index MOD 4C 2576.9 cm???/min???m??? LV Diastolic Length 4C 7.2 cm LV Systolic Length 4C 5.8 cm LV Diastolic Volume MOD 2C 71.2 cm??? LV Systolic Volume MOD 2C 24.0 cm??? LV Ejection Fraction MOD 2C 66.3 % LV Cardiac Index MOD 2C 2164.0 cm???/min???m??? LV Diastolic Length 2C 7.2 cm LV Systolic Length 2C 6.6 cm LA Volume 50.6 cm??? 18 - 58 / 22 - 52 cm??? LA Volume Index 24.6 cm???/m??? 16 - 28 cm???/m??? M-MODE Aortic Root Diameter MM 2.9 cm LA Systolic Diameter MM 2.7 cm LA Ao Ratio MM 0.9 AV Cusp Separation MM 1.7 cm DOPPLER AV Peak Velocity 148.8 cm/s AV Peak Gradient 8.9 mmHg AV Mean Velocity 108.8 cm/s AV Mean Gradient 5.2 mmHg AV Velocity Time Integral 35.6 cm LVOT Peak Velocity 109.6 cm/s LVOT Peak Gradient 4.8 mmHg LVOT Velocity Time Integral 24.9 cm MV Area PHT 2.6 cm??? Mitral E Point Velocity 65.6 cm/s Mitral A Point Velocity 93.0 cm/s Mitral E to A Ratio 0.7 MV Deceleration Time 292.8 ms TR Peak Velocity 182.8 cm/s TR Peak Gradient 13.4 mmHg FINDINGS Left Ventricle Left ventricular ejection fraction is estimated at 55-60%. Mildly increased septal wall thickness. Mildly increased posterior wall thickness. No obvious regional wall motion abnormalities. Right Ventricle Normal right ventricular size and function. Right ventricular systolic pressure within normal limits. Right Atrium Normal right atrial size. Left Atrium Normal left atrial size. Mitral Valve Structurally normal mitral valve. Trace mitral regurgitation. No mitral stenosis. Aortic Valve Trileaflet aortic valve. No aortic valve stenosis or regurgitation. Tricuspid Valve Structurally normal tricuspid valve. Trace tricuspid regurgitation. No tricuspid stenosis. Pulmonic Valve Structurally normal pulmonic valve. Trace pulmonic regurgitation. Pericardium No pericardial or pleural effusion. Aorta Normal size aortic root and proximal ascending aorta. CONCLUSIONS Diagnosis: Hypertension Mild LVH with preserved systolic function Previewed by: Dr. Elias Diaz MD (Electronically Signed) Final Date: 01 February 2024 19:20
== END | disposition home or self-care (01) ==
LOC: RADECHMAIN 11:24
PROVIDERS: ATTEND Family Medicine
DX: I10 Essential (primary) hypertension (principal)
CPT/HCPCS: 93306

== ENCOUNTER → 2024-03-30 | Outpatient (CLI) | payer BC ==
--- NOTE | 2024-04-01 11:29 | US ---
EXAMINATION TYPE: US pelvis complete transvag DATE OF EXAM: 03/30/2024 COMPARISON: NONE CLINICAL INDICATION: Female, 53 years old with history of N83.0 OVARIAN CYST; Hx of ovarian cyst TECHNIQUE: Transvaginal (TV) and Transabdominal (TA) . EXAM MEASUREMENTS: Uterus: 7.6 x 6.2 x 5.6 cm Endometrial Stripe: 1.3 cm 1. Uterus: Anteverted wnl 2. Endometrium: upper limits 3. Right Ovary: Obscured by overlying bowel gas 4. Left Ovary: Obscured by overlying bowel gas 5. Bilateral Adnexa: wnl 6. Posterior cul-de-sac: wnl IMPRESSION: Unremarkable study [facility], , 04/01/2024 11:27 AM
--- NOTE | 2024-04-04 13:27 | P.PN ---
Progress Note - Text Progress Note Date: 04/04/24 OUTPATIENT FOLLOW-UP NOTE TEST(S)/RESULTS: Pelvic ultrasound done on 03/30/2024 shows an endometrial thickness of 1.3 cm. This is unchanged from her 09/05/2023 ultrasound. No ovarian masses were seen. METHOD OF NOTIFICATION: A message with this result was left on the patient's voicemail. PATIENT COMMENTS: DIAGNOSIS: Above average endometrial thickness. No signs of ovarian masses. DISCUSSION: The patient had postmenopausal bleeding in 2017 with an endometrial thickness of 1.5 cm. Hysteroscopy with D&C was benign and showed a submucous fibroid. The that she was evaluated for the an endometrial thickness of 1.5 cm at that time with benign findings and stable endometrial thickness compared to her 09/05/2023 ultrasound, I am not recommending any intervention at this time. She was instructed to call if she is having vaginal bleeding or problems. If there is no bleeding, we will plan on repeating the pelvic ultrasound in 1 year. She was instructed to call if she does experience bleeding. PLAN: As above.
== END | disposition home or self-care (01) ==
LOC: RADUSWWP 06:51
PROVIDERS: ATTEND Obstetrics & Gynecology
DX: N83.00 Follicular cyst of ovary, unspecified side
CPT/HCPCS: 76830; 76856

== ENCOUNTER → 2024-11-20 | Outpatient (CLI) | payer BC ==
[2024-11-20 16:11] VITALS: BP 159/95; PULSE 101; RESP 17; TEMP 98.4
--- NOTE | 2024-11-20 16:54 | P.HPOB ---
History of Present Illness H&P Date: 11/20/24 Chief Complaint: The patient is here for her routine gynecologic exam and ma mmogram. This is a 54-year-old G1, P1 with an LMP of 2018. The patient has been experiencing urinary urgency, frequency, and slight dysuria morning and thinks she has a urinary tract infection. She is otherwise without complaints. She denies any postmenopausal vaginal bleeding. Review of Systems The patient has lost 8 pounds over the last year. She denies respiratory, cardiac, or G.I. problems. 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 History of Any Multi-Drug Resistant Organisms: None Reported Additional Past Surgical History / Comment(s): eye surgery age 6 and 17; Exploratory laparotomy with right ovarian cystectomy, dilatation and currettagex2; [place] teeth. 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 - Past Family History Father Family Medical History: Cancer Additional Family Medical History / Comment(s): Melanoma Mother Family Medical History: Hypertension Additional Family Medical History / Comment(s): Endometriosis. IBS. Maternal aunt had breast cancer. Medications and Allergies Home Medications Medication Instructions Recorded Confirmed Type Rosuvastatin Calcium [Crestor] 10 mg PO HS 12/18/13 11/20/24 History hydroCHLOROthiazide [Hydrodiuril] 12.5 mg PO QAM 12/18/13 11/20/24 History [place]-3 Fatty Acids/Fish Oil [Fish 1 each PO DAILY 06/01/17 11/20/24 History Oil 1,000 mg Softgel] Potassium Chloride ER [K-Dur 10] 1 tab PO DAILY 11/20/24 11/20/24 History Allergies Allergy/AdvReac Type Severity Reaction Status Date / Time Sulfa (Sulfonamide Allergy Rash/Hives Verified 11/20/24 16:07 Antibiotics) leuprolide acetate AdvReac Vomiting Verified 11/20/24 16:07 [From Lupron] Exam Vital Signs Temp Pulse Resp BP Pulse Ox 11/20/24 16:08 98.4 F 101 H 17 159/95 99 Intake and Output 11/20/24 11/20/24 11/20/24 06:59 14:59 22:59 Other: Weight 87.997 kg Height 5 feet 5 inches, weight 194 pounds, BMI 32.3. This is a well-developed well-nourished white female who is alert and oriented times 3 in no acute distress. HEENT: Within normal limits. NECK: Supple without mass or thyromegaly. CHEST AND LUNGS: Clear to auscultation. HEART: Regular rate and rhythm. BREASTS: Are without mass or discharge. AXILLARY EXAM: Negative for adenopathy. BACK: Negative for CVA tenderness. ABDOMEN: Soft, nontender, without palpable masses. PELVIC EXAM: Normal external genitalia with minimal atrophy. Cervix and vagina appear normal with minimal atrophy. There is no unusual discharge. There is no evidence of prolapse. The uterus is midposition, 12 weeks size and nontender. There are no palpable adnexal masses or tenderness. RECTAL EXAM: Rectovaginal exam is negative for mass or tenderness and is negative for occult blood. EXTREMITIES: Nontender. IMPRESSION: 1. 54-year-old menopausal female with known fibroid uterus which is approximately 12 weeks size. This is stable from her previous exam. 2. Chronically thickened endometrium by ultrasound and she has had a hysteroscopy D&C for this in 2017. 3. 1 day of urinary urgency, frequency, and dysuria. Suspected cystitis UTI. 4. Chronically thickened endometrium with benign hysteroscopy and D&C in the past. 5. History of uterine fibroids with uterine enlargement that is stable on exam today. PLAN: 1. Pap smear was deferred since she had a negative Pap smear cotest on 10/20/2022. 2. Self breast awareness was discussed with the patient. We have also discussed symptoms associated with inflammatory breast cancer. 3. Screening mammogram will be done today. 4. Urine has been obtained for urinalysis and culture with sensitivities. She will be treated empirically with Macrobid twice daily x 7 days. [facility] [address] [facility]. 5. Pelvic ultrasound to recheck the endometrial thickness and uterine fibroids in March 2025. The order slip was given to the patient. 6. Osteoporosis prevention was discussed. I have stressed the importance of adequate calcium, vitamin D and regular exercise. Recommended amounts of calcium and vitamin D were also discussed. 7. She was advised to return in one year for her annual well woman exam and as needed.
[2024-11-21 02:49] LABS: Appearance,Urine Clear (Clear); Bilirubin,Urine Negative (Negative); Blood,Urine Large (Negative); Color,Urine Yellow (Yellow); Ketones,Urine Negative (Negative); Nitrite,Urine Negative (Negative); PH, Urine 6.5; Specific Gravity,Urine 1.014 (1.001-1.030); Urobilinogen,Urine 0.2 E.U./DL
[2024-11-21 04:46] LABS: Bacteria,Urine None Seen (None Seen); UA Starch Present (None Seen)
--- NOTE | 2024-11-21 13:12 | P.PN ---
Progress Note - Text Progress Note Date: 11/21/24 OUTPATIENT FOLLOW-UP NOTE TEST(S)/RESULTS: Urinalysis done on 11/20/2024 was positive for leukocyte esterase and blood. METHOD OF NOTIFICATION: A message indicating that the urine is consistent with a UTI was left on the patient's voicemail on 11/21/2024. PATIENT COMMENTS: DIAGNOSIS: Cystitis UTI DISCUSSION: She has been treated with Macrobid. We will also await the urine culture. She was instructed to call if her symptoms are not improving or if problems. PLAN: As above.
--- NOTE | 2024-11-21 14:33 | MM ---
Reason for Exam: Screening (asymptomatic). Last screening mammogram was performed 12 month(s) ago. Patient History: Menarche at age 13. First Full-Term at age 27. Postmenopausal. Patient used Hormonal Contraceptives for 5 years. 08/07/2018, Benign Cyst Aspiration on the left side. Maternal aunt had breast cancer, age 61. Risk Values: Dania 5 year model risk: 1.2%. NCI Lifetime model risk: 9.4%. Prior Study Comparison: 11/08/2022 Bilateral MG 3D screening mammo w/cad, [facility]. 05/12/2023 Right MG 3D diag mammo w/cad RT, [facility]. 11/16/2023 Bilateral MG 3D screening mammo w/cad, [facility]. Tissue Density: The breasts are heterogeneously dense, which may obscure small masses. Findings: Analyzed By CAD. Right breast: Increasing size of mass 7.2 cm from the nipple middle to posterior depth on CC view and slightly superior on MLO view near 12:00 measuring 12 mm. Left breast: Stable benign masses. There is no suspicious group of microcalcifications or new suspicious mass. Overall Assessment: Incomplete: need additional imaging evaluation, BI-RAD 0 Management: Diagnostic Breast Ultrasound of the right breast. [facility] will attempt to contact patient to return for supplemental views and ultrasound if indicated. Patient should continue monthly self-breast exams. A clinical breast exam by your physician is recommended on an annual basis. This exam should not preclude additional follow-up of suspicious palpable abnormalities. Note on Dania scores and lifetime risk: 1. A Dania score greater than 3% is considered moderate risk. If this is the case, consider specialist referral to assess eligibility for a risk reducing agent. 2. If overall lifetime risk for the development of breast cancer is 20% or higher, the patient may qualify for future screening with alternating mammogram and breast MRI. [facility], , 11/21/2024 7:24 AM. Electronically signed and approved by: Manpreet Avendano DO
== END ==
LOC: WWCWWP 15:55
PROVIDERS: ATTEND Obstetrics & Gynecology
DX: Z01.419 Encounter for gynecological examination (general) (routine) without abnormal findings (principal); Z12.31 Encounter for screening mammogram for malignant neoplasm of breast; D25.9 Leiomyoma of uterus, unspecified; R39.15 Urgency of urination; R30.0 Dysuria; N85.01 Benign endometrial hyperplasia; Z87.42 Personal history of other diseases of the female genital tract; Z88.1 Allergy status to other antibiotic agents; Z88.2 Allergy status to sulfonamides
CPT/HCPCS: 77063; 77067; 81001; 87086